=== PATIENT | male | born 1960 | race Two or more races ===

== ENCOUNTER 2025-05-30 18:23 | Emergency (ER) | payer OTHER ==
[~2025-05-30] VITALS: Ht 167.6 cm; Wt 93.0 kg
--- NOTE | 2025-05-30 18:31 | ED.PDOC ---
HPI Comments HPI: This is a 64 year old male JIM presenting to the ED with chief complaint of chest pain. Patient reports that while driving home from work today, he began to experiencing 7/10 left sided chest pain. EMS relays that they provided the patient 0.4mg of Nitroglycerin, bring down his chest pain to a 4/10, however, it has increased back up to a 6/10 since arriving to the ED. Patient denies any N/V, SOB, dizziness, headache, blurred vision, fever, or chills. Initial Vitals BP: 169/82 HR: 86 RR: O2 Sat: 94% Temp: Past Medical history: HTN, HLD, DM, Psoriasis, CAD, Depression Past Surgical history: PTCA x2, Inguinal hernia repair Medications: Aspirin Social History: Denies smoking, ETOH, and drug use. Allergies: NKDA HPI: Poor Historian. REVIEW OF SYSTEMS: CONSTITUTIONAL: Denies acute: fever, diaphoresis, chills, generalized weakness. HEAD: Denies acute: headache, photophobia Eyes: Denies acute: Double vision, vision loss, eye pain, eye discharge. EARS: Denies acute: tinnitus, hearing loss, ear discharge, ear pain, THROAT: Denies acute: sore throat, swelling, difficulty swallowing , pain with swallowing, change in voice. NECK: Denies acute: neck pain, neck swelling, stiff neck. HEART: Denies acute : palpitations, LUNGS: Denies acute: SOB, wheezing, cough, hemoptysis ABDOMEN: Denies acute: abdominal pain, Nausea, Vomiting, diarrhea, melena , hematemesis, hematochezia SKIN: Denies acute: rash, redness, lesions, itchiness. EXTREMITIES: Denies acute: calf pain, numbness, tingling, weakness, denies pain in extremity. Denies acute: Low back pain. Neuro: Denies acute: focal neurological deficit, motor or sensory focal neurological deficit, tremors, seizure like activity, confusion, dizziness, change in mental status, loss of bowel or bladder function, cauda equina like symptoms. : Denies acute: dysuria, hematuria, flank pain, increase in urinary frequency. PSYCH: Denies acute: hallucination, suicidal ideation, homicidal ideation. PHYSICAL EXAM: General: ----[id number]----acute distress, awake and alert. Head: normocephalic, atraumatic. Neck: supple, trachea is midline, no swelling. Throat: Normal phonation. Eyes:, no erythema, no purulent discharge, no proptosis, no icterus. Heart: regular rate, regular rhythm, no significant murmur appreciated. Lungs: no apparent respiratory distress, Able to speak in full sentences. No wheezing, no rhonchi, no crackles. No stridors Clear to auscultation bilaterally. Abdomen: non tender to palpation, non distended, soft, no guarding, no rebound, + bowel sounds. Neuro: Awake, Alert, oriented to name, self, situation, follows commands GCS=15. Speech is normal. Skin: no petechia, no purpura, no cyanosis, non-pale, not jaundice. Lower extremities: --no - Pitting edema no deformity, no focal swelling, no calf TTP. Makes eye contact. moves all four extremities. Face: no apparent facial droop. Ambulating in the ED independently. ED COURSE: DISCLAIMER: This medical document was created using an electronic medical record system with voice recognition software and computerized dictation system. Although this document has been carefully reviewed, there might still be some phonetic and typographical errors. Occasional wrong-word or "sound-alike" substitutions may have occurred due to the inherent limitations of voice recognition software. These areas are purely typographical due to imperfections of the software programs and do not reflect any compromise in the patient's medical care. Please read the chart carefully and recognize, using context, where these substitutions have occurred. Time Seen by MD: 18:28 Reviewed Notes: Medications, Allergies Information Source: Patient, Emergency Med Personnel, Spouse Mode of Arrival: EMS Was a procedure done? Was a procedure done?: No X-Ray, Labs, Meds, VS Vital Signs Date Time Temp Pulse Resp B/P (MAP) Pulse Ox O2 Delivery O2 Flow Rate FiO2 05/30/25 19:33 89 05/30/25 19:15 78 05/30/25 18:29 98.2 82 18 169/82 (111) 93 98.2 Lab Test 05/30/25 19:38 05/30/25 18:38 Range/Units Troponin I High Sensitivity 3 L 3 L </=54 ng/L White Blood Count 8.1 4.4-10.8 10^3/uL Red Blood Count 5.00 4.5-5.90 10^6/uL Hemoglobin 15.7 13.5-17.5 g/dL Hematocrit 46.6 41.0-53.0 % Mean Corpuscular Volume 93.2 80.0-100.0 fL Mean Corpuscular Hemoglobin 31.4 28.0-32.0 pg Mean Corpuscular Hemoglobin Concent 33.7 32.0-36.0 g/dL Red Cell Distribution Width 14.4 H 11.8-14.3 % Platelet Count 233 140-450 10^3/uL Mean Platelet Volume 7.8 6.9-10.8 fL Neutrophils (%) (Auto) 72.4 37.0-80.0 % Lymphocytes (%) (Auto) 14.9 10.0-50.0 % Monocytes (%) (Auto) 10.4 0.0-12.0 % Eosinophils (%) (Auto) 1.6 0.0-7.0 % Basophils (%) (Auto) 0.7 0.0-2.0 % Neutrophils # (Auto) 5.9 1.6-8.6 10 ^3/uL Lymphocytes # (Auto) 1.2 0.4-5.4 10 ^3/uL Monocytes # (Auto) 0.8 0-1.3 10 ^3/uL Eosinophils # (Auto) 0.1 0-0.8 10 ^3/uL Basophils # (Auto) 0.1 0-0.2 10 ^3/uL Nucleated Red Blood Cells 0.1 % Sodium Level 139 136-145 mmol/L Potassium Level 4.8 3.5-5.1 mmol/L Chloride Level 104 98-107 mmol/L Carbon Dioxide Level 26 20-31 mmol/L Anion Gap 9 5-15 Blood Urea Nitrogen 25 H 9-23 mg/dL Creatinine 1.30 0.700-1.30 mg/dL Glomerular Filtration Rate Calc 62 >90 mL/min BUN/Creatinine Ratio 19.2 10.0-20.0 Serum Glucose 146 H 74-106 mg/dL Calcium Level 10.0 8.7-10.4 mg/dL Total Bilirubin 0.5 0.2-1.0 mg/dL Aspartate Amino Transferase (AST) 35 13-40 U/L Alanine Aminotransferase (ALT) 51 H 7-40 U/L Alkaline Phosphatase 53 46-116 U/L B-Type Natriuretic Peptide 44.42 0-100 pg/mL Total Protein 7.8 5.7-8.2 g/dL Albumin 4.6 3.2-4.8 g/dL [place] [id number] Ph: [phone] DIAGNOSTIC IMAGING Diagnostic Imaging Report : [id number] Signed PATIENT: LANI BOUCHER ACCT: [id number] UNIT: [id number] : 1960 LOC: ER ROOM / BED: / AGE / SEX: 64 / M ADM STATUS: REG ER SERVICE 50 ORDERING PHYSICIAN: NADINE ALEJANDRO DO PROCEDURE(s): CXRP - CHEST PORTABLE REASON: cp ORDER NUMBER(s): [id number], ACCESSION NUMBER(s): [id number] INDICATION: cp TECHNIQUE: Frontal view of the chest. COMPARISON: None FINDINGS/IMPRESSION: There is prominence of the interstitial markings. No pleural effusion or pneumothorax. Unremarkable cardiomediastinal silhouette. No acute osseous a bnormality. ATED BY: NAREN GROSSMAN MD DICTATED DATE/TIME: 05/30/251911 SIGNED BY: NAREN GROSSMAN MD SIGNED DATE/TIME: 05/30/251911 CC: Time of 1ST Reevaluation: 19:28 Reevaluation 1ST: Unchanged Time of 2ND Reevaluation: 20:55 (The case was discussed with the [facility] admitting team (HPI, physical exam, labs and diagnostic tests that were available at the time of disposition, ED course, treatment plan) on the phone. They agreed to transfer the patient to their service by ALS for further evaluation and treatment. Dr. Peralta Authorization number is--[id number]) Patient Education/Counseling: Diagnosis, Treatment Family Education/Counseling: Diagnosis, Treatment Departure 1 Departure Time of Disposition: 20:55 Impression: Primary Impression: Chest pain Disposition: 02 SHORT TERM HOSPITAL Admit to: Tele Condition: Guarded Discharged With: Self Critical Care Note Critical Care Time?: No Heart Score Heart Score: Heart Score Response (Comments) Value History Highly Suspicious 2 EKG Normal 0 Age >65 2 Risk Factors >3 or Hx ASHD 2 Total 6 I personally scribed for NADINE ALEJANDRO DO ([email or web address]) on 05/30/25 at 18:31. Electronically submitted by Anselmo Smyth ([email or web address]). I personally scribed for NADINE ALEJANDRO DO ([email or web address]) on 05/30/25 at 20:21. Electronically submitted by Anselmo Smyth ([email or web address]). NADINE ALEJANDRO DO May 30, 2025 18:31
[2025-05-30 18:55] LABS: Hematocrit 46.6 % (41.0-53.0); Hemoglobin 15.7 g/dL (13.5-17.5); Mean Corpuscular Hemoglobin 31.4 pg (28.0-32.0); Mean Corpuscular Volume 93.2 fL (80.0-100.0); Nucleated Red Blood Cells % 0.1 %
--- NOTE | 2025-05-30 19:15 | DVH ---
INDICATION: cp TECHNIQUE: Frontal view of the chest. COMPARISON: None FINDINGS/IMPRESSION: There is prominence of the interstitial markings. No pleural effusion or pneumothorax. Unremarkable cardiomediastinal silhouette. No acute osseous abnormality.
[2025-05-30 19:20] LABS: Albumin 4.6 g/dL (3.2-4.8); Alkaline Phosphatase 53 U/L (46-116); Anion Gap 9 (5-15); BUN/Creatinine Ratio 19.2 (10.0-20.0); Bilirubin, Total 0.5 mg/dL (0.2-1.0); Calcium 10.0 mg/dL (8.7-10.4); Carbon Dioxide 26 mmol/L (20-31); Chloride 104 mmol/L (98-107); Potassium 4.8 mmol/L (3.5-5.1); Sodium 139 mmol/L (136-145); Total Protein 7.8 g/dL (5.7-8.2)
[2025-05-30 19:33] LABS: Alanine Aminotransferase 51 U/L (7-40); Blood Urea Nitrogen 25 mg/dL (9-23); Glucose 146 mg/dL (74-106)
[2025-05-30] MEDS: NITROGLYCERIN 0.4 MG SL TAB SL ONE (21:10)
[2025-05-30] MEDS: ASPirin-EC 325mg tab PO ONE (21:10)
[2025-05-31] VITALS: O2SAT 90
[2025-05-31] MEDS: ACETAMINOPHEN 325 MG TAB PO ONE (01:07)
[2025-05-31 02:44] VITALS: BP 112/72; PULSE 98; RESP 20; TEMP 98; O2SAT 95
--- NOTE | 2025-06-03 14:05 | ECG ---
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
--- NOTE | 2025-06-03 14:05 | ECG ---
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
--- NOTE | 2025-06-03 14:05 | ECG ---
[facility] Test Date: 2025-05-30 Test Time: 19:33:48 Pat Name: LANI BOUCHER Department: ED Room: Gender: M [employer] Technician: PHILLIP : 1960 Requested By: NADINE AELJANDRO Order Number: [id number] Reading MD: Rodríguez Alvarez Measurements Intervals [place] Rate: 89 P: 18 CO: 175 QRS: 55 QRSD: 85 T: 27 QT: 350 QTc: 426 Interpretive Statements Sinus rhythm Minimal ST elevation, lateral leads Electronically Signed On 06-03-2025 18:33:20 PDT by Rodríguez Alvarez Please click the below link to view image of tracing.
== END 2025-05-31 03:15 | disposition short-term general hospital (02) ==
LOC: EDBD 18:23 → ER 18:23
DX: R07.89 Other chest pain (principal); E11.9 Type 2 diabetes mellitus without complications; E78.5 Hyperlipidemia, unspecified; I10 Essential (primary) hypertension; Z79.899 Other long term (current) drug therapy
CPT/HCPCS: 36415; 71045; 80053; 83880; 84484; 85025; 93005

== ENCOUNTER 2025-10-16 06:56 | Outpatient (CLI) | payer BC ==
[2025-10-16 07:26] LABS: Hematocrit 42.7 % (41.0-53.0); Hemoglobin 14.5 g/dL (13.5-17.5); Mean Corpuscular Hemoglobin 29.1 pg (28.0-32.0); Mean Corpuscular Volume 85.8 fL (80.0-100.0); Nucleated Red Blood Cells % 0.1 %
[2025-10-16 07:40] LABS: Urine Protein, UAD TRACE (Negative)
[2025-10-16 08:35] LABS: Alanine Aminotransferase 39 U/L (7-40); Albumin 4.4 g/dL (3.2-4.8); Alkaline Phosphatase 86 U/L (46-116); Anion Gap 9 (5-15); BUN/Creatinine Ratio 18.6 (10.0-20.0); Blood Urea Nitrogen 19 mg/dL (9-23); Calcium 10.0 mg/dL (8.7-10.4); Carbon Dioxide 27 mmol/L (20-31); Chloride 101 mmol/L (98-107); Potassium 4.2 mmol/L (3.5-5.1); Sodium 137 mmol/L (136-145); Total Protein 7.9 g/dL (5.7-8.2)
[2025-10-16 08:36] LABS: Bilirubin, Total 0.5 mg/dL (0.2-1.0); Cholesterol 148 mg/dL (< 200); HDL Cholesterol 40 mg/dL (40-59)
[2025-10-16 08:41] LABS: Glucose 122 mg/dL (74-106); Triglycerides 168 mg/dL (< 150)
== END 2025-10-16 17:00 | disposition home or self-care (01) ==
LOC: LAB 06:56
PROVIDERS: ATTEND Internal Medicine
DX: I10 Essential (primary) hypertension (principal); E78.00 Pure hypercholesterolemia, unspecified; R73.03 Prediabetes; Z13.1 Encounter for screening for diabetes mellitus; Z00.01 Encounter for general adult medical examination with abnormal findings
CPT/HCPCS: 36415; 80053; 80061; 81001; 83036; 84439; 84443; 85025